=== PATIENT | male | born 2000 | race Caucasian/White ===

== ENCOUNTER 2022-07-02 08:00 | Emergency (ER) | payer OTHER, SELFPAY ==
[2022-07-02 08:07] VITALS: BP 133/73; PULSE 85; RESP 16; TEMP 36.1; O2SAT 100; BMI 28.1
--- NOTE | 2022-07-02 09:02 | ED.SKABFB ---
HPI - Skin/Abscess/Foreign Bdy General Chief complaint: Skin/Abscess/Foreign Body Stated complaint: abbess on tail bone Time Seen by Provider: 07/02/22 08:59 Source: patient and family Mode of arrival: ambulatory Limitations: no limitations History of Present Illness HPI narrative: 22 y/o male presenting to the ER for evaluation of an abscess on his tailbone for the last 2 days. 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 He states over the last 18 hours the area has tripled in size and become more painful. He denies history of anything similar to this in the past. No fever or chills. No drainage from the area. He sat in [facility] ER all night waiting to be see but ended up leaving after he heard their wait was 36 hours. MD complaint: abscess/boil Onset (ago): day(s) (2) Location: buttocks Severity: severe Severity scale (1-10): 9 Quality: stabbing and aching Pain Consistency: constant Relieving factors: none Exacerbating factors: movement and other (sitting) Context: none Associated symptoms: denies other symptoms Treatments prior to arrival: none Related Data Previous Rx's Medication Instructions Recorded cephalexin 500 mg capsule 500 mg PO Q6H 7 days #28 caps 07/02/22 doxycycline hyclate 100 mg tablet 100 mg PO BID 7 days #14 tabs 07/02/22 ibuprofen 600 mg tablet 600 mg PO Q8H PRN fever or pain 07/02/22 #14 tabs oxycodone 5 mg tablet 5 mg PO Q6H PRN severe pain (scale 07/02/22 score 7-10) #7 tabs Allergies Allergy/AdvReac Type Severity Reaction Status Date / Time No Known Allergies Allergy Verified 07/02/22 09:36 Review of Systems Review of Systems: Constitutional: No Fever, No Chills Cardiovascular: No Chest Pain, No SOB Gastrointestinal: No Nausea, No Vomiting No abdominal Pain Musculoskeletal: No joint pain, No Myalgias Skin: N+ Skin Lesions, No rash Neuro: No Weakness, No Numbness Psych: + Anxiety/Panic, No Depression Heme/Lymph: No Bruising, No Lymphadenopathy PMFSH Social History Social History Advance Directives: No Advance Directives Information Provided: Yes Physical Exam Vital Signs: Vital Signs: Last Vital Signs Temp 97.0 F 07/02/22 08:07 Pulse 85 07/02/22 08:07 Resp 16 07/02/22 08:07 BP 133/73 07/02/22 08:07 Pulse Ox 100 07/02/22 08:07 O2 Del Method 07/02/22 08:07 BMI result Body Mass Index 28.1 Appearance: Alert. Oriented X3. No acute distress. HEENT: normal inspection CVS: Normal heart rate and rhythm. Pulses normal. Respiratory: No respiratory distress. Back: gluteal cleft with a moderate sized indurated area with tenderness, warmth and erythema, minimal fluctuance, small area of possible drainage centrally Skin: Skin warm and dry. Normal skin color. Normal skin turgor. No rashes. Extremities: normal inspection x4, normal ROM Neuro: Oriented X 3. Grossly normal, nonfocal. steady gait Course Course Course Narrative: 22 yo male presenting with a painful, erythematous and inflamed pilonidal cyst. Small area of possible drainage but minimal fluctunace. Will trial needle aspiration, if return will I&D. Reevaluation(s) Reevaluation #1: Purulent material on aspiration. I&D performed with moderate bloody purulent material return. patient vasovagal response with nausea, flushing, feeling he was going to pass out. recovered quickly with ice on his neck and water. will monitor Reevaluation #2: dry sterile dressing applied after irrigation. patient tolerated well. feeling much better. stable for d/c home with po abx, pain control and f/u with general surgery. patient and mom agree with plan and have been counseled. Procedures Abscess I/D Site: other (pilonidal ) Local Anesthetic: lidocaine 1% Amount of anesthesia used (mL): 3 Technique: needle aspiration and incised with blade Sent for culture/gram staining?: No Irrigation: Yes Packing used?: none Complications: pain Discharge Plan Discharge Clinical Impression: Cellulitis, Pilonidal cyst Patient Disposition: Home, Self-Care Instructions: Pilonidal Cyst (ED), Cellulitis (ED) Additional Instructions: Use warm compresses to the area several times per day Take the prescribed antibiotics as directed Recommend following up with a General Surgery for evaluation of possible cyst removal if you have recurrence Prescriptions: New doxycycline hyclate 100 mg tablet 100 mg PO BID 7 Days Qty: 14 0RF ibuprofen 600 mg tablet 600 mg PO Q8H PRN (Reason: fever or pain) Qty: 14 0RF cephalexin 500 mg capsule 500 mg PO Q6H 7 Days Qty: 28 0RF oxycodone 5 mg tablet 5 mg PO Q6H PRN (Reason: severe pain (scale score 7-10)) Qty: 7 0RF Rx Instructions: Partial Fill upon patient request. Referrals: [facility] [place] [facility] [Provider Group] Stand Alone Forms: Work/School Release
[2022-07-02] MEDS: Ibuprofen 600 MG TABLET PO (09:41)
[2022-07-02] MEDS: oxyCODONE HCl Immed Release 5 MG TABLET PO (09:41)
[2022-07-02] MEDS: cephALEXin 500 MG CAPSULE PO (09:41)
[2022-07-02] MEDS: Lidocaine HCl 1 % 20 ML VIAL INFILTRATI (09:42)
== END 2022-07-02 10:11 | disposition home or self-care (01) ==
PROVIDERS: Emergency Provider Emergency Medicine; PCP Pediatrics
DX: L05.01 Pilonidal cyst with abscess (principal); L03.317 Cellulitis of buttock
CPT/HCPCS: 10080; 99283